=== PATIENT | female | born 1930 | race Caucasian/White ===

== ENCOUNTER 2017-03-28 14:00 | Emergency (ER) | payer MEDICARE, BC ==
[2017-03-28 14:44] VITALS: BP 135/74
--- NOTE | 2017-03-28 16:16 | UC ---
Complaint Female HPI - HPI Summary HPI Summary: Pt is here for medication change. Pt was seen in [facility] ED last night and was diagnosed with UTI and given Macrobid. Pt took a dose today with ful stomach nd had immediate onset of nausea and vomiting - History Of Current Complaint Chief Complaint: UCMedRefill Stated Complaint: MED REFILL Time Seen by Provider: 03/28/17 15:16 Hx Obtained From: Patient ?: No Onset/Duration: Sudden Onset, Resolved Severity Initially: Mild Severity Currently: None Pain Intensity: 0 Pain Scale Used: 0-10 Numeric Associated Signs And Symptoms: Positive: Nausea, Vomiting(# Of Episodes =) - Risk Factors Ectopic Risk Factor: Negative Ovarian Torsion Risk Factor: Negative - Allergies/Home Medications Allergies/Adverse Reactions: Allergies Allergy/AdvReac Type Severity Reaction Status Date / Time No Known Allergies Allergy Verified 03/28/17 14:45 Home Medications: Home Medications Acetaminophen [Acetaminophen Extra Stren] 500 mg PO Q12HR PRN 03/28/17 [History Confirmed 03/28/17] Aspirin [Aspirin 81 MG TAB] 81 mg PO DAILY 03/28/17 [History Confirmed 03/28/17] Cholecalciferol [Vitamin D] 1,000 unit PO DAILY 03/28/17 [History Confirmed 11/05] Levothyroxine TAB* [Synthroid TAB*] 50 mcg PO DAILY 03/28/17 [History Confirmed 03/28/17] Nitrofurantoin Macrocrystals* [Macrodantin*] 100 mg PO ONCE 03/28/17 [History Confirmed 03/28/17] PMH/Surg Hx/FS Hx/Imm Hx Previously Healthy: Yes - Surgical History Surgical History: Yes Surgery Procedure, Year, and Place: Bilateral Hip Replacements. 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 Substance Use Type: None Smoking Status (MU): Never Smoked Tobacco Review of Systems Constitutional: Negative Skin: Negative Eyes: Negative ENT: Negative Respiratory: Negative Cardiovascular: Negative Gastrointestinal: Vomiting, Diarrhea Genitourinary: Negative Motor: Negative Neurovascular: Negative Musculoskeletal: Negative Neurological: Negative Psychological: Negative Is Patient Immunocompromised?: No All Other Systems Reviewed And Are Negative: Yes Physical Exam Triage Information Reviewed: Yes Appearance: Well-Appearing Vital Signs: Initial Vital Signs Temp 99.2 F 03/28/17 14:28 Pulse 92 03/28/17 14:28 Resp 20 03/28/17 14:28 BP 135/74 03/28/17 14:28 Pulse Ox 95 03/28/17 14:28 Vital Signs Reviewed: Yes Eye Exam: Normal ENT Exam: Normal Dental Exam: Normal Neck exam: Normal Respiratory: Positive: Normal breath sounds Musculoskeletal Exam: Normal Neurological Exam: Normal Psychological Exam: Normal Skin Exam: Other - abrasion on nose Complaint Female Dx - Differential Dx/Diagnosis Differential Diagnosis/HQI/PQRI: Urinary Tract Infection, Other - medication change Provider Diagnoses: medication change Discharge - Discharge Plan Condition: Stable Disposition: HOME Prescriptions: Cephalexin CAP* [Keflex 500 CAP*] 500 mg PO Q12H #10 cap Patient Education Materials: Antibiotic Medication Allergy (ED), Medicine Refill (ED) Referrals: Wes HINKLE,Colt Strong [Primary Care Provider] - If Needed
== END 2017-03-28 15:37 | disposition home or self-care (01) ==
LOC: UCCORT 14:00
DX: Z76.0 Encounter for issue of repeat prescription (principal); Z79.82 Long term (current) use of aspirin
CPT/HCPCS: 99212; G0463